=== PATIENT | male | born 1965 | race Caucasian/White ===

== ENCOUNTER 2016-09-30 20:02 | Emergency (ER) | payer OTHER ==
[~2016-09-30] VITALS: Ht 177.8 cm; Wt 92.5 kg
--- NOTE | 2016-09-30 20:41 | ED UPPER/LOWER EXTREMITY COMPL ---
History of Present Illness General Chief Complaint: Lower Extremity Problems Stated Complaint: PT RT LEG IS WARM AND SWOLLEN Source: patient Exam Limitations: no limitations Vital Signs & Intake/Output Vital Signs & Intake/Output Vital Signs Date Time Temp Pulse Resp B/P B/P Pulse O2 O2 Flow FiO2 Mean Ox Delivery Rate 09/30 2156 Room Air 09/30 2156 98.3 84 14 118/78 99 Room Air 09/30 2008 97.8 93 20 120/80 96 Room Air ED Intake and Output 10/01 0000 09/30 1200 Intake Total Output Total Balance Patient 204 lb Weight Weight Reported by Patient Measurement Method Allergies Coded Allergies: milk (Intermediate, GI UPSET 09/30/16) pork derived (porcine) (Mild, RASH 09/30/16) Reconcile Medications Tramadol HCl 50 MG TABLET 1 TAB PO TID pain Triage Note: TRIAGE: PT TO ER C/C PAIN AND SWELLING TO RLE, ONSET SATURDAY. WENT TO WALK IN CLINIC THIS MORNING AND WAS PRESCRIBED CYCLOBENZAPRINE "BUT THEN IT GOT WORSE AND MORE SWOLLEN SO DIDN'T TAKE THE MEDICATION AND CAME HERE". DENIES ANY INJURY. DENIES RECENT TRAVEL. Triage Nurses Notes Reviewed? yes Onset: Abrupt Duration: day(s): (2-3), constant, continues in ED, getting worse Timing: single episode today Severity: mild, moderate Severity Numbers: 7 Pain/Injury Location: Right: Leg, Ankle. No Modifying Factors: none Associated Symptoms: swelling HPI: 51-year-old male with no synechia past medical history of pain and swelling in his right lower leg past few days. Patient reports that 3 days ago he had gone out and was dancing. He woke up the next day with some pain and swelling in the right lower leg. He again went out dancing this in the next night despite the pain. In an swelling and gotten worse. Pain is located in the right ankle and right lower leg. She rates the pain as a 7 out of 10 that does not radiate. Pain is worse with any type of movement. To the area. He has been taking ibuprofen without any septic improvement. He was seen in an urgent care earlier in the day and prescribed Flexeril. With significant Flexeril K emergency department for further evaluation. She denies any recent trauma, surgery, testosterone, estrogen use, malignancy, previous DVT, previous PE, coagulopathy, or fever. (CATHRYN COMBS PA-C) Past History Travel History Traveled to [place] past 21 day No Medical History Any Pertinent Medical History? see below for history Neurological: NONE EENT: allergies Cardiovascular: NONE Respiratory: NONE Gastrointestinal: NONE Hepatic: NONE Renal: NONE Musculoskeletal: NONE Psychiatric: SLEEP Endocrine: NONE Blood Disorders: NONE Cancer(s): NONE POWER ELECTRONICS ENGINEER/Reproductive: NONE Surgical History Surgical History: none Psychosocial History What is your primary language Nigerien Tobacco Use: Quit >30 days ago ETOH Use: occasional use Illicit Drug Use: denies illicit drug use Family History Hx Contributory? No (CATHRYN COMBS PA-C) Review of Systems Review of Systems Constitutional: Reports: no symptoms. EENTM: Reports: no symptoms. Respiratory: Reports: no symptoms. Cardiovascular: Reports: no symptoms. Gastrointestinal/Abdominal: Reports: no symptoms. Genitourinary: Reports: no symptoms. Musculoskeletal: Reports: see HPI, joint pain, joint swelling, muscle pain, muscle stiffness. Skin: Reports: no symptoms. Neurological/Psychological: Reports: no symptoms. Hematologic/Endocrine: Reports: no symptoms. Immunological: Reports: no symptoms. All Other Systems: Reviewed and Negative (CATHRYN COMBS PA-C) Physical Exam Physical Exam General Appearance: well developed/nourished, no apparent distress, alert, awake , anxious, comfortable Head: atraumatic, normal appearance Eyes: Bilateral: normal appearance, PERRL, EOMI. Ears, Nose, Throat: normal pharynx, normal ENT inspection, hearing grossly normal Neck: normal inspection, supple, full range of motion Cardiovascular/Respiratory: normal breath sounds, normal peripheral pulses, regular rate/rhythm, no respiratory distress Peripheral Pulses: 2+ dorsalis pedis (R), 2+ dorsalis pedis (L) Back: normal inspection, normal range of motion, no vertebral tenderness Shoulder Left: normal range of motion, normal inspection Shoulder Right: normal range of motion, normal inspection Knee Left: normal range of motion, normal inspection Lower Extremity Reflexes: 2+: knee (R), knee (L). Neurologic/Tendon: normal sensation, normal motor functions, normal tendon functions Skin: intact, normal color, warm/dry Comments: There is swelling and pain with palpation along the medial aspect of the right ankle and right lower leg. There is no erythema, discharge, focal fluctuant areas or warmth. Full range of motion of the ankle and knee is intact with pain. Patient is able to bear weight. Neurovascular supply is intact. (CATHRYN COMBS PA-C) Progress Differential Diagnosis: arterial insufficiency, cellulitis, DVT, fracture, sprain, tendon injury Plan of Care: Suspicion for DVT is low. Bedside ultrasound did not show any signs of blood clot in the left lower extremity. Patient will be given an outpatient ultrasound requisition. He'll be discharged home on Ibprofen Flexeril and tramadol as needed for pain. Case discussed with Dr. Lentz and he agrees with the plan. (CATHRYN COMBS PA-C) Departure Departure Disposition: HOME OR SELF CARE Condition: Stable Clinical Impression Primary Impression: Pain in right lower leg Referrals: PATIENT HAS NO PRIMARY CARE DR (PCP/Family) Additional Instructions: Rest keep the legs elevated and apply ice. Wear Marcelino wrap. Continue to use ibuprofen 800 mg every 8 hours as needed for pain. Flexeril every 8 hours as needed for pain. Tramadol can be used as needed for severe pain only. This may cause drowsiness especially when combined with Flexeril. Complete outpatient ultrasound tomorrow. Return to respond with worsening pain. Review all results of today's visit with your primary care doctor. Departure Forms: Customer Survey General Discharge Information Prescriptions: Current Visit Scripts Tramadol HCl 1 TAB PO TID #10 TAB (CATHRYN COMBS PA-C) PA/RADIO ADJUSTER Co-Sign Statement Statement: ED Attending supervision documentation- [] I saw and evaluated the patient. I have also reviewed all the pertinent lab results and diagnostic results. I agree with the findings and the plan of care as documented in the PA's/RADIO ADJUSTER's documentation. [x] I have reviewed the ED Record and agree with the PA's/RADIO ADJUSTER's documentation. [] Additions or exceptions (if any) to the PAs/RADIO ADJUSTER's note and plan are summarized below: [] (RICK POLO,RAMONA Mcnulty)
[2016-09-30] MEDS ORDERED: TRAMADOL HCL50 M1 PO (21:53)
[2016-09-30 21:57] VITALS: BP 118/78
== END 2016-09-30 21:58 ==
LOC: ERH 20:02
DX: M79.604 Pain in right leg (principal)